=== PATIENT | female | born 1995 | race Caucasian/White ===

== ENCOUNTER 2020-02-17 16:04 | Emergency (ER) | payer BC, OTHER ==
[~2020-02-17] VITALS: Ht 177.8 cm; Wt 88.6 kg
[2020-02-17] MEDS ORDERED: normal saline 1000ML IV soln IVB ONE (16:50)
[2020-02-17] MEDS ORDERED: dicyclomine 10 MG capsule PO ONE (16:50)
[2020-02-17] MEDS ORDERED: ketorolac tromethamine 15mg/ml inj. IV ONE (16:50)
[2020-02-17 17:06] LABS: BASOPHILS % (AUTO) 0.1 % (0-1); EOSINOPHILS # (AUTO) 0.1 X10'3 (0-0.9); EOSINOPHILS % (AUTO) 0.4 % (0-6); HEMOGLOBIN 14.1 g/dl (12.0-16.0); MEAN CORPUSCULAR HEMOGLOBIN 26.1 PG (27.0-31.0); MEAN CORPUSCULAR VOLUME 81.5 FL (78-98); MEAN PLATELET VOLUME 8.1 FL (7.4-10.4); MONOCYTES # (AUTO) 0.7 X10'3 (0-0.9); MONOCYTES % (AUTO) 5.2 % (2-12); NEUTROPHILS # (AUTO) 11.4 X10'3 (1.8-7.7); NEUTROPHILS % (AUTO) 80.3 % (42-75); PLATELET COUNT 347 X10'3 (140-440); RED BLOOD COUNT 5.41 X10'6 (4.20-5.60); RED CELL DISTRIBUTION WIDTH 15.9 % (11.5-14.5); WHITE BLOOD COUNT 14.1 X10'3 (4.5-11.0)
[2020-02-17 17:36] LABS: URINE HCG NEGATIVE (NEG)
[2020-02-17 17:41] LABS: ALANINE AMINOTRANSFERASE 11 U/L (12-78); ALBUMIN/GLOBULIN RATIO 1.1 (1.1-1.5); ALKALINE PHOSPHATASE 139 IU/L (46-116); ANION GAP 7 (8-16); ASPARTATE AMINO TRANSFERASE 11 U/L (10-37); BILIRUBIN,TOTAL 0.6 MG/DL (0.1-1.0); BLOOD UREA NITROGEN 12 MG/DL (7-18); BUN/CREATININE RATIO 11.7 (6.6-38.0); CHLORIDE 105 MMOL/L (99-107); CREATININE 1.03 MG/DL (0.40-0.90); GLUCOSE 94 MG/DL (70-104); LIPASE 80 U/L (73-393); POTASSIUM 4.1 MMOL/L (3.5-5.1); SODIUM 141 MMOL/L (135-145); TOTAL CARBON DIOXIDE 28.9 MMOL/L (24-32); TOTAL PROTEIN 7.8 G/DL (6.4-8.2); eGFR 66 ML/MIN
[2020-02-17 17:47] LABS: CLARITY,URINE CLEAR (Clear); COLOR,URINE YELLOW (Yellow); GLUCOSE, URINE NEGATIVE (Neg); LEUKOCYTE ESTERASE ,URINE NEGATIVE (Neg); NITRITES, URINE NEGATIVE (Neg); OCCULT BLOOD,URINE SMALL (Neg); PROTEIN,URINE TRACE mg/dl (Neg); UROBILINOGEN,URINE 0.2 E.U/dL (0.2-1.0)
[2020-02-17 17:49] LABS: UA COLLECTION TYPE CLN CATCH MIDSTREAM
[2020-02-17 17:56] LABS: KETONES,URINE 15 mg/dl (Neg)
[2020-02-17 18:00] LABS: BACTERIA,URINE FEW /HPF (Neg); RBC,URINE NONE SEEN /HPF (0-2); SQUAMOUS EPITHELIAL CELL,UR MANY /LPF (FEW); WBC,URINE NONE SEEN /HPF (0-4)
[2020-02-17] MEDS ORDERED: iohexol 300mg/ml 100ml inj. ONE (18:17)
[2020-02-17] MEDS ORDERED: PANT20TA18 PO (20:02)
[2020-02-17] MEDS ORDERED: ONDA4TAB6 PO (20:02)
[2020-02-17 20:08] VITALS: BP 108/60
[2020-02-18 15:33] LABS: OCCULT BLOOD STOOL NEGATIVE (Neg)
== END 2020-02-17 20:10 | disposition home or self-care (01) ==
LOC: ER 16:05
DX: R19.7 Diarrhea, unspecified (principal); K92.1 Melena; R11.0 Nausea; R10.11 Right upper quadrant pain; Z90.89 Acquired absence of other organs; Z79.899 Other long term (current) drug therapy
CPT/HCPCS: 36415; 74177; 80053; 81001; 81025; 82272; 83690; 85025; 96361; 96374; 99285; J1885; J7030; Q9967